=== PATIENT | female | born 1955 | race Two or more races ===

== ENCOUNTER 2017-08-23 18:27 | Emergency (ER) | payer OTHER ==
[~2017-08-23] VITALS: Ht 162.6 cm; Wt 72.6 kg
[2017-08-23] MEDS ORDERED: cloNIDine HCL 0.1 MG TAB ONE (18:32)
[2017-08-23] MEDS ORDERED: cloNIDine HCL 0.1 MG TAB PO ONE (18:45)
[2017-08-23 19:28] LABS: Basophils # (auto) 0 uL; Basophils % (auto) 0.5 % (0.0-2.0); Eosinophils # (auto) 0.2 uL; Eosinophils % (auto) 2.9 % (0.0-7.0); Hematocrit 40.5 % (36.0-46.0); Lymphocytes # (auto) 2.7 uL; Lymphocytes % (auto) 32.8 % (10.0-50.0); Mean Corpuscular Hemoglobin 32.2 pg (28.0-32.0); Mean Corpuscular Hgb Conc. 34.5 g/dL (32.0-36.0); Mean Corpuscular Volume 93.5 fL (80.0-100.0); Mean Platelet Volume 8.8 fL (6.9-10.8); Monocytes # (auto) 0.3 uL; Monocytes % (auto) 4.3 % (0.0-12.0); Neutrophils # (auto) 4.9 uL; Neutrophils % (auto) 59.5 % (37.0-80.0); Nucleated Red Blood Cells % 0.1 %; Platelet Count (auto) 247 10^3/uL (140-450); Red Cell Distribution Width 13.1 % (11.8-14.3); White Blood Cell 8.2 10^3/uL (4.4-10.8)
[2017-08-23 19:53] LABS: Albumin 3.6 g/dL (3.4-5.0); Alkaline Phosphatase 153 U/L (45-117); Amylase 73 U/L (25-115); Anion Gap 9 (5-15); Aspartate Aminotransferase 30 U/L (15-37); BUN/Creatinine Ratio 14.7; Bilirubin, Total 0.5 mg/dL (0.2-1.0); Blood Urea Nitrogen 17 mg/dL (7-18); Calcium 8.9 mg/dL (8.5-10.1); Carbon Dioxide 27 mmol/L (21-32); Chloride 104 mmol/L (98-107); GFR African American 61 mL/min; GFR Non-African American 50 mL/min; Glucose 104 mg/dL (74-106); Potassium 3.7 mmol/L (3.5-5.1); Sodium 140 mmol/L (136-145); Total Protein 8.1 g/dL (6.4-8.2)
[2017-08-24 06:49] VITALS: BP 137/69
[2017-08-24] MEDS ORDERED: ONDANSETRON HCL 4 MG/2 ML VIAL IM ONE (07:00)
== END 2017-08-24 06:59 | disposition home or self-care (01) ==
LOC: ER 18:27
DX: K29.00 Acute gastritis without bleeding (principal); T78.40XA Allergy, unspecified, initial encounter; I10 Essential (primary) hypertension
CPT/HCPCS: 36415; 74176; 80053; 82150; 83690; 84484; 85025; 93005; 96372; 99285; J2405